=== PATIENT | female | born 1980 | race Caucasian/White ===

== ENCOUNTER 2018-11-18 17:36 | Emergency (ER) | payer OTHER ==
[2018-11-18 17:47] VITALS: BP 148/76
--- NOTE | 2018-11-18 18:44 | EDM.PDOC ---
ED HPI GENERAL MEDICAL PROBLEM - General Chief Complaint: Chest Pain Stated Complaint: [facility] Time Seen by Provider: 11/18/18 17:44 Source of Information: Reports: Patient History Limitations: Reports: No Limitations - History of Present Illness INITIAL COMMENTS - FREE TEXT/NARRATIVE: 38-year-old female presents via [facility] for evaluation and treatment of chest pain. Patient reports that the chest pain started suddenly only moments before she called 911; about 30 minutes ago now. She reports sudden onset of severe sharp chest pain is substernal chest pain that radiates to her back. No radiation to her arm or neck. She received 325 4 mg of aspirin by EMS. She reports initially the pain was a 7 out of 10 upon arrival to the ED the patient reports the pain is a 4 or 5 out of 10. She reports feeling flushed earlier she denies any nausea, vomiting, diaphoresis or any shortness of breath. Denies any pain or swelling in her legs recently. Patient denies any cardiac history. Patient denies a history of hypertension, hypercholesterolemia or diabetes. Patient is overweight. She is on oral contraceptives. 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 Other Treatments QUALITY TECHNICIAN: 324mg Chest Pain Score (Numeric/FACES): 4 - Related Data Allergies Allergy/AdvReac Type Severity Reaction Status Date / Time latex Allergy Rash Verified 11/18/18 17:47 Home Meds: Home Meds Cetirizine [ZyrTEC] 10 mg PO DAILY 11/18/18 [History] FLUoxetine HCl [Prozac] 40 mg PO DAILY 11/18/18 [History] Mometasone Furoate [Nasonex [place]] 1 spray CELINA BID 11/18/18 [History] Montelukast [Singulair] 10 mg PO DAILY 11/18/18 [History] Norgestimate-Ethinyl Estradiol [Tri-Sprintec Tablet] 1 tab PO DAILY 11/18/18 [ History] Omeprazole 20 mg PO DAILY 11/18/18 [History] Solifenacin Succinate [Vesicare] 10 mg PO DAILY 11/18/18 [History] Past Medical History 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: 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 and 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 ovary removed Psychiatric History: Reports: Anxiety - Past Surgical History HEENT Surgical History: Reports: Adenoidectomy GI Surgical History: Reports: Appendectomy Female Surgical History: Reports: Hysterectomy, Oophorectomy Social & Family History - Tobacco Use Smoking Status *Q: Never Smoker - Caffeine Use Caffeine Use: Reports: Soda - Recreational Drug Use Recreational Drug Use: No ED ROS GENERAL - Review of Systems Review Of Systems: See Below Constitutional: Denies: Diaphoresis Respiratory: Denies: Shortness of Breath Cardiovascular: Reports: Chest Pain (substernal) GI/Abdominal: Denies: Abdominal Pain, Nausea, Vomiting Musculoskeletal: Reports: Back Pain. Denies: Neck Pain, Arm Pain, Leg Pain ED EXAM, GENERAL - Physical Exam Exam: See Below Exam Limited By: No Limitations General Appearance: Alert, WD/WN, No Apparent Distress, Anxious, Obese Throat/Mouth: Normal Inspection, Normal Voice Neck: Normal Inspection Respiratory/Chest: No Respiratory Distress, Lungs Clear, Normal Breath Sounds Cardiovascular: Normal Peripheral Pulses, Regular Rate, Rhythm, No Murmur GI/Abdominal: Normal Bowel Sounds, Soft, Non-Tender Neurological: Alert, Oriented, Normal Cognition Psychiatric: Normal Affect, Normal Mood Skin Exam: Warm, Dry, Normal Color EKG INTERPRETATION EKG Date: 11/18/18 Time: 17:42 Rhythm: NSR Rate (Beats/Min): 82 [place]: Normal P-Wave: Present QRS: Normal ST-T: Normal QT: Normal EKG Interpretation Comments: NSRat 82 bpm. No AVB. No AE. No ischemic changes. Early transition. No LAD/RAD. No LVH. No IVCD. QTc at upper limits of normal with a QTc of 473. Reviewed by myself and Dr. Harris. Course - Vital Signs Last Recorded V/S: Last Vital Signs Temp 98.7 F 11/18/18 17:43 Pulse 82 11/18/18 17:43 Resp 18 11/18/18 17:43 BP 148/76 H 11/18/18 17:43 Pulse Ox 100 11/18/18 17:43 - Orders/Labs/Meds Labs: Laboratory Tests 11/18/18 11/18/18 11/18/18 Range/Units 17:44 17:44 17:44 WBC 12.75 H (3.98-10.04) K/mm3 RBC 4.74 (3.98-5.22) M/mm3 Hgb 12.6 (11.2-15.7) gm/L Hct 39.0 (34.1-44.9) % MCV 82.3 (79.4-94.8) fl MCH 26.6 (25.6-32.2) pg MCHC 32.3 (32.2-35.5) g/dl RDW Std Deviation 42.2 (36.4-46.3) fL Plt Count 371 H (182-369) K/mm3 MPV 9.4 (9.4-12.3) fl Neut % (Auto) 66.8 (34.0-71.1) % Lymph % (Auto) 27.5 (19.3-51.7) % [place] % (Auto) 5.2 (4.7-12.5) % Eos % (Auto) 0 L (0.7-5.8) Baso % (Auto) 0.3 (0.1-1.2) % Neut # (Auto) 8.51 H (1.56-6.13) K/mm3 Lymph # (Auto) 3.51 (1.18-3.74) K/mm3 [place] # (Auto) 0.66 H (0.24-0.36) K/mm3 Eos # (Auto) 0.00 L (0.04-0.36) K/mm3 Baso # (Auto) 0.04 (0.01-0.08) K/mm3 PT 10.0 (9.5-12.1) SECONDS INR < 0.93 APTT 28 (24-31) SECONDS D-Dimer, Quantitative 0.39 (0.19-0.50) mg/L Sodium 139 (136-145) mEq/L Potassium 3.7 (3.5-5.1) mEq/L Chloride 103 (98-107) mEq/L Carbon Dioxide 26 (21-32) mEq/L Anion Gap 13.7 (5-15) BUN 11 (7-18) mg/dL Creatinine 0.8 (0.55-1.02) mg/dL Est Cr Clr Drug Dosing 80.42 mL/min Estimated GFR (MDRD) > 60 (>60) mL/min BUN/Creatinine Ratio 13.8 L (14-18) Glucose 98 (74-106) mg/dL Calcium 9.3 (8.5-10.1) mg/dL Total Bilirubin 0.2 (0.2-1.0) mg/dL AST 18 (15-37) U/L ALT 25 (14-59) U/L Alkaline Phosphatase 135 H (46-116) U/L Troponin I < 0.017 (0.00-0.056) ng/mL Total Protein 7.6 (6.4-8.2) g/dl Albumin 3.2 L (3.4-5.0) g/dl Globulin 4.4 gm/dL Albumin/Globulin Ratio 0.7 L (1-2) Lipase 218 (73-393) U/L 11/18/18 Range/Units 20:40 WBC (3.98-10.04) K/mm3 RBC (3.98-5.22) M/mm3 Hgb (11.2-15.7) gm/L Hct (34.1-44.9) % MCV (79.4-94.8) fl MCH (25.6-32.2) pg MCHC (32.2-35.5) g/dl RDW Std Deviation (36.4-46.3) fL Plt Count (182-369) K/mm3 MPV (9.4-12.3) fl Neut % (Auto) (34.0-71.1) % Lymph % (Auto) (19.3-51.7) % [place] % (Auto) (4.7-12.5) % Eos % (Auto) (0.7-5.8) Baso % (Auto) (0.1-1.2) % Neut # (Auto) (1.56-6.13) K/mm3 Lymph # (Auto) (1.18-3.74) K/mm3 [place] # (Auto) (0.24-0.36) K/mm3 Eos # (Auto) (0.04-0.36) K/mm3 Baso # (Auto) (0.01-0.08) K/mm3 PT (9.5-12.1) SECONDS INR APTT (24-31) SECONDS D-Dimer, Quantitative (0.19-0.50) mg/L Sodium (136-145) mEq/L Potassium (3.5-5.1) mEq/L Chloride (98-107) mEq/L Carbon Dioxide (21-32) mEq/L Anion Gap (5-15) BUN (7-18) mg/dL Creatinine (0.55-1.02) mg/dL Est Cr Clr Drug Dosing mL/min Estimated GFR (MDRD) (>60) mL/min BUN/Creatinine Ratio (14-18) Glucose (74-106) mg/dL Calcium (8.5-10.1) mg/dL Total Bilirubin (0.2-1.0) mg/dL AST (15-37) U/L ALT (14-59) U/L Alkaline Phosphatase (46-116) U/L Troponin I < 0.017 (0.00-0.056) ng/mL Total Protein (6.4-8.2) g/dl Albumin (3.4-5.0) g/dl Globulin gm/dL Albumin/Globulin Ratio (1-2) Lipase (73-393) U/L Meds: Medications Discontinued Medications Generic Name Dose Route Start Last Admin Trade Name Freq PRN Reason Stop Dose Admin Famotidine 20 mg 11/18/18 20:49 11/18/18 20:57 Pepcid IVPUSH 11/18/18 20:50 20 mg ONETIME ONE Administration - Radiology Interpretation Free Text/Narrative:: Chest: 2 views of the chest were obtained. Comparison: Prior chest x-ray of 11/25/17. Heart size and mediastinum are within normal limits. Lungs are clear. Bony structures appear within normal limits for the patient's age. Surgical clips are seen within the upper abdomen. Impression: 1. Nothing acute is appreciated on 2 view chest x-ray. - Re-Assessments/Exams Free Text/Narrative Re-Assessment/Exam: 11/18/18 21:20 Reviewed the labs, ekg and imaging with the patient. Reports she is pain free at this time. She declined any pain medication throughout her ED stay. Feel this is most likely GERD related. Also possible anxiety as a component. I will discharge her home tonight. She is anxious to go home at this time. Discharge instructions as documented. Departure - Departure Time of Disposition: 21:23 Disposition: Home, Self-Care 01 Condition: Fair Clinical Impression: Chest pain Instructions: Nonspecific Chest Pain, [id number] Referrals: Petra Johnson PA-C [Primary Care Provider] - Forms: ED Department Discharge Additional Instructions: Follow-up with PCP in 2 weeks for a recheck of your symptoms. Continue on GERD medication as prescribed. May take OTC tylenol or motrin as needed for discomfort. Please return to the ER should your symptoms change or worsen.
--- NOTE | 2018-11-18 20:10 | CR ---
Chest: Two views of the chest were obtained. Comparison: Prior chest x-ray of 11/25/17. Heart size and mediastinum are within normal limits. Lungs are clear. Bony structures appear within normal limits for the patient's age. Surgical clips are seen within the upper abdomen. Impression: 1. Nothing acute is appreciated on two-view chest x-ray. Diagnostic code #2
[2018-11-18] MEDS ORDERED: Famotidine 20 MG/2 ML SDV IVPUSH ONE (20:49)
== END 2018-11-18 21:35 | disposition home or self-care (01) ==
LOC: JD.ED 17:36
DX: R07.2 Precordial pain (principal); F41.9 Anxiety disorder, unspecified; Z79.899 Other long term (current) drug therapy; Z91.040 Latex allergy status
CPT/HCPCS: 36415; 71046; 80053; 83690; 84484; 85025; 85379; 85610; 85730; 93005; 96374; 99285; J3490

== ENCOUNTER 2018-12-09 10:11 | Emergency (ER) | payer MEDICAID, OTHER ==
[2018-12-09 10:24] VITALS: BP 135/83
--- NOTE | 2018-12-09 11:08 | EDM.PDOC ---
ED HPI GENERAL MEDICAL PROBLEM - General Chief Complaint: Chest Pain Stated Complaint: CHEST PAIN OFF AND ON FOR 3 WEEKS Time Seen by Provider: 12/09/18 10:57 Source of Information: Reports: Patient, RN Notes Reviewed History Limitations: Reports: No Limitations - History of Present Illness INITIAL COMMENTS - FREE TEXT/NARRATIVE: Patient is a 38 year old female who presents to the ED for the evaluation of chest burning. She states that she was seen a couple weeks ago in this ED for chest pain with similar symptoms. Today, she notes that she does not have any pain with this. She states that this episode started this AM around 9:00, and has not gone away. She did try to call her PCP, Mckenzie Johnson, but was directed to come to ED. She does have an appointment with Mckenzie tomorrow, however. She states that she feels lightheaded with this episode. She also notes that they are increasing in frequency and she has around 6-7/day. She notes that the feeling starts in her chest and feels like her whole body gets hot, but she does not sweat. She took 4-81mg ASA and 2 TUMS last night for relief and this only helped for about an hour. She notes that she is just doing regular daily activities when these episodes hit, and cannot note any specific activity that aggravates this. She denies fever/chills, nausea/vomiting/diarrhea, feelings of anxiety, vertigo, shortness of breath, chest pain or abdominal pain. She states that besides the episodes she feels well. She does state a history of PCOS that she take OCP for. Her surgeries include 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 with retention of 1 ovary, cholecystectomy, tonsillectomy and appendectomy. She further denies the start of any new dietary supplements, herbal supplements, medications or otherwise that would attribute to these feelings. Right Chest Pain Score (Numeric/FACES): 5 - Related Data Allergies Allergy/AdvReac Type Severity Reaction Status Date / Time latex Allergy Rash Verified 12/09/18 10:16 Home Meds: Home Meds Cetirizine [ZyrTEC] 10 mg PO DAILY 11/18/18 [History] FLUoxetine HCl [Prozac] 40 mg PO DAILY 11/18/18 [History] Mometasone Furoate [Nasonex [place]] 1 spray CELINA BID 11/18/18 [History] Montelukast [Singulair] 10 mg PO DAILY 11/18/18 [History] Norgestimate-Ethinyl Estradiol [Tri-Sprintec Tablet] 1 tab PO DAILY 11/18/18 [ History] Omeprazole 20 mg PO DAILY 11/18/18 [History] Solifenacin Succinate [Vesicare] 10 mg PO DAILY 11/18/18 [History] Past Medical History HEENT History: Reports: Impaired Vision Respiratory History: Reports: Asthma Gastrointestinal History: Reports: Cholelithiasis, GERD 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 Musculoskeletal History: Reports: Back Pain, Chronic Neurological History: Reports: Headaches, Chronic Psychiatric History: Reports: Anxiety Dermatologic History: Reports: Eczema - Past Surgical History HEENT Surgical History: Reports: Adenoidectomy, Oral Surgery, Tonsillectomy GI Surgical History: Reports: Appendectomy, Cholecystectomy Female Surgical History: Reports: Hysterectomy, Oophorectomy Social & Family History - Family History Family Medical History: Noncontributory Oncologic: Reports: Liver, Lung, Prostate - Tobacco Use Smoking Status *Q: Never Smoker - Caffeine Use Caffeine Use: Reports: Soda - Recreational Drug Use Recreational Drug Use: No ED ROS GENERAL - Review of Systems Review Of Systems: See Below Constitutional: Reports: Other (body flushing) HEENT: Reports: No Symptoms Respiratory: Reports: No Symptoms Cardiovascular: Reports: No Symptoms Endocrine: Reports: No Symptoms GI/Abdominal: Reports: No Symptoms : Reports: No Symptoms Musculoskeletal: Reports: No Symptoms Skin: Reports: No Symptoms Neurological: Reports: Dizziness (lightheadedness). Denies: Confusion, Headache , Syncope Psychiatric: Reports: No Symptoms Immunologic: Reports: No Symptoms ED EXAM, GENERAL - Physical Exam Exam: See Below Exam Limited By: No Limitations General Appearance: Alert, WD/WN, No Apparent Distress Eye Exam: Bilateral Eye: EOMI, Normal Inspection, PERRL Ears: Normal External Exam, Normal TMs Nose: Normal Inspection Throat/Mouth: Normal Inspection, Normal Oropharynx, No Airway Compromise Head: Atraumatic, Normocephalic Neck: Normal Inspection, Supple, Non-Tender, Full Range of Motion Respiratory/Chest: No Respiratory Distress, Lungs Clear, Normal Breath Sounds, No Accessory Muscle Use, Chest Non-Tender Cardiovascular: Normal Peripheral Pulses, Regular Rate, Rhythm, No Edema, No Murmur GI/Abdominal: Normal Bowel Sounds, Soft, Non-Tender, No Distention, No Mass, Other (obese abdomen) Extremities: Normal Inspection, Normal Capillary Refill Neurological: Alert, Oriented, No Motor/Sensory Deficits Psychiatric: Normal Affect, Normal Mood Skin Exam: Warm, Dry, Intact, Normal Color, No Rash EKG INTERPRETATION EKG Date: 12/09/18 Time: 11:33 Rhythm: NSR Rate (Beats/Min): 68 [place]: Normal P-Wave: Present QRS: Normal ST-T: Normal QT: Normal EKG Interpretation Comments: Reviewed with Dr. Gooden Course - Vital Signs Last Recorded V/S: Last Vital Signs Temp 97.2 F 12/09/18 10:22 Pulse 77 12/09/18 10:22 Resp 16 12/09/18 10:22 BP 135/83 12/09/18 10:22 Pulse Ox 99 12/09/18 10:22 - Orders/Labs/Meds Orders: Active Orders 24 hr Category Date Time Status EKG Documentation Completion [RC] STAT Care 12/09/18 11:25 Ordered Labs: Laboratory Tests 12/09/18 12/09/18 Range/Units 12:04 12:04 WBC 13.13 H (3.98-10.04) K/mm3 RBC 4.72 (3.98-5.22) M/mm3 Hgb 12.5 (11.2-15.7) gm/L Hct 39.1 (34.1-44.9) % MCV 82.8 (79.4-94.8) fl MCH 26.5 (25.6-32.2) pg MCHC 32.0 L (32.2-35.5) g/dl RDW Std Deviation 42.1 (36.4-46.3) fL Plt Count 344 (182-369) K/mm3 MPV 9.3 L (9.4-12.3) fl Neutrophils % (Manual) 78 H (40-60) % Band Neutrophils % 0 (0-10) % Lymphocytes % (Manual) 21 (20-40) % Atypical Lymphs % 0 % Monocytes % (Manual) 1 L (2-10) % Eosinophils % (Manual) 0 L (0.7-5.8) % Basophils % (Manual) 0 L (0.1-1.2) Platelet Estimate Adequate Plt Morphology Comment Normal RBC Morph Comment Normal Sodium 139 (136-145) mEq/L Potassium 3.7 (3.5-5.1) mEq/L Chloride 101 (98-107) mEq/L Carbon Dioxide 28 (21-32) mEq/L Anion Gap 13.7 (5-15) BUN 10 (7-18) mg/dL Creatinine 0.8 (0.55-1.02) mg/dL Est Cr Clr Drug Dosing 80.42 mL/min Estimated GFR (MDRD) > 60 (>60) mL/min BUN/Creatinine Ratio 12.5 L (14-18) Glucose 98 (74-106) mg/dL Calcium 9.0 (8.5-10.1) mg/dL Total Bilirubin 0.2 (0.2-1.0) mg/dL AST 17 (15-37) U/L ALT 24 (14-59) U/L Alkaline Phosphatase 133 H (46-116) U/L Total Protein 7.4 (6.4-8.2) g/dl Albumin 3.2 L (3.4-5.0) g/dl Globulin 4.2 gm/dL Albumin/Globulin Ratio 0.8 L (1-2) TSH 3rd Generation 2.104 (0.358-3.74) uIU/mL - Re-Assessments/Exams Free Text/Narrative Re-Assessment/Exam: 12/09/18 11:43 Pt presents to the ED for chest burning/flushing. Etiology is unclear. Have ordered EKG, CBC, CMP and TSH for evaluation today. Plan to send home with heart monitor and have her follow up with Mckenzie Johnson for results. I am questioning if this is more hormone related. 12/09/18 13:10 Pt labs are back and are essentially WNL. Will recommend 48 hour Holter monitor and follow up with Mckenzie Johnson. Etiology of her flushing symptoms is still unknown. Departure - Departure Time of Disposition: 13:25 Disposition: Home, Self-Care 01 Condition: Fair Clinical Impression: Burning chest pain Instructions: Nonspecific Chest Pain, [id number] Referrals: Petra Johnson PA-C [Primary Care Provider] - Forms: ED Department Discharge Additional Instructions: You have been evaluated in the ED for your chest burning sensations. Your lab work was essentially within normal limits today, your EKG did not show any signs of acute blockage or other abnormalities. You have been sent home with a 48 hour Holter monitor, Please wear this for the next 48 hours and return to our clinic for evaluation. You will need to follow up with your primary care, Mckenzie Johnson for the report. Etiology of your symptoms at today's visit are unclear, but may be likely due to hormonal imbalance. Please discuss this issue at your next appointment. Please return to ED if your symptoms change or worsen. - My Orders Last 24 Hours: My Active Orders 12/09/18 11:25 EKG Documentation Completion [RC] STAT - Assessment/Plan Last 24 Hours: My Active Orders 12/09/18 11:25 EKG Documentation Completion [RC] STAT
== END 2018-12-09 13:43 | disposition home or self-care (01) ==
LOC: JD.ED 10:11
DX: R07.9 Chest pain, unspecified (principal); J45.909 Unspecified asthma, uncomplicated; K21.9 Gastro-esophageal reflux disease without esophagitis; Z91.040 Latex allergy status; Z79.899 Other long term (current) drug therapy
CPT/HCPCS: 36415; 80053; 84443; 85007; 85027; 93005; 93010; 93225; 93226; 99283; 99285-25

== ENCOUNTER 2022-04-18 23:54 | Emergency (ER) | payer BC, MEDICAID ==
[2022-04-19 00:04] VITALS: BP 137/78; PULSE 81
[2022-04-19] MEDS ORDERED: Alum Hydrox/Mag Hydrox/Simeth 30 ML, Lidocaine 2% 15 ML PO ONE ×2 (00:20)
[2022-04-19] MEDS ORDERED: Potassium Chloride 20 MEQ Tab.ER PO ONE (03:45)
[2022-04-19] MEDS ORDERED: Famotidine 20 MG Tab PO ONE (03:49)
== END 2022-04-19 04:13 | disposition home or self-care (01) ==
LOC: JD.ED 23:54 → SUPCPDRO 23:54 → JD.ED 04-19 04:13
DX: K21.9 Gastro-esophageal reflux disease without esophagitis (principal); Z91.040 Latex allergy status; Z79.899 Other long term (current) drug therapy
CPT/HCPCS: 36415; 74022; 80053; 81001; 83690; 84484; 85025; 87086; 93005; 99285; A9270; 93010; 99284